=== PATIENT | male | born 2000 | race Caucasian/White ===

== ENCOUNTER 2024-09-28 14:44 | Emergency (ER) | payer OTHER, SELFPAY ==
[2024-09-28 15:02] VITALS: BP 116/72
--- NOTE | 2024-09-28 16:29 | ED.GENMED ---
History of Present Illness
General
Chief Complaint: Musculo-Skeletal Complaint
Source: family
Exam Limitations: non verbal-adult
Time Seen by Provider: 09/28/24 16:21
History of Present Illness
History of Present Illness:
See MDM
Past History
Past History
ED Past Medical History: Other (Cerebral palsy nonverbal, )
ED Past Surgical History: Other (Cataract)
Social History
Tobacco: Non-smoker
Alcohol: None
Personal: Single
Living: with family
Phy Exam
Physical Exam
Physical Exam:
See MDM
Course
Orders/Labs/Results
Orders:
Orders
09/28/24 15:05
Knee, Right 4 or More Views [CR Knee- Right 4 Or More View*] Urgent
Comment:
Reason For Exam: swelling
09/28/24 16:41
Fluid Culture with Gram Stain Urgent
SUNIL Source: Joint Fluid
Specimen Description:
Vital Signs
Initial and Last Documented VS:
Initial Vital Signs
Pulse Resp BP Pulse Ox
100 22 116/72 100
09/28/24 15:02 09/28/24 15:02 09/28/24 15:02 09/28/24 15:02
Last Documented Vital Signs
Pulse Resp BP Pulse Ox
100 22 116/72 100
09/28/24 15:02 09/28/24 15:02 09/28/24 15:02 09/28/24 15:02
Procedures
Incision/Drainage/Joint Aspiration
Right Anterior Knee:
Preparation: cleaned with Betadine
Type of procedure: aspiration
Nature of site: other (Prepatellar effusion)
Description of abscess: greater than 3cm
Loculations broken up: No
How much fluid was obtained?: number in mls (20 mL)
Fluid description: blood tinged
Treatment: bandaid applied
MDM/Problems Addressed
Differential Diagnosis Includes:
HPI and MDM Narrative:
23-year-old nonverbal male presenting with father for evaluation of right knee swelling. He went to the PCP today and the PCP indicated that this likely needs to be drained. They called the orthopedist but there is no available appointment for
over a month. Patient does get around on his knees due to his cerebral palsy. On exam, patient has what appears to be a prepatellar bursitis. There is no skin changes or any evidence of intra-articular effusion. Father gave verbal consent for
drainage
Physical exam
General: Well appearing and non-toxic
HEENT: protecting airway
Neck: appears supple
CV: No evidence of cyanosis
Resp: No accessory muscle use
Abd: Non-distended
Extremities: Right knee prepatellar bursitis. No skin changes
Neuro: alert
Psych: Normal affect
Skin: Intact
Problems Addressed including Acute and Chronic Conditions affecting care:
1. Prepatellar bursitis
Acuity: acute
Prognosis: stable
Details: Appears to be related to overuse. Will drain
Updates
Patient tolerated aspiration well. 20 cc of blood-tinged fluid was removed. Will send for Gram stain and culture
Differential Diagnosis (but not limited to): Prepatellar bursitis, patellar fracture
Testing considered: Fluid analysis
Drug therapy (if applicable): OTC meds, please see d/c instruction regarding Rx drugs
Amount and/or Complexity of Data Reviewed
Clinical info obtained from: Father
External data reviewed: N/A
Labs I independently reviewed (but not limited to): N/A
Radiology: N/A
Pulse Ox: not hypoxic
EKG independently reviewed: N/A
Inbound Sales Representative: N/A
Critical Care: N/A
Risk of Complication:
Social Determinants of health: Good social support
Discussed with other providers: N/A
Escalation of Care includes Admit/Obs: After being observed in the Emergency Department, pt stable for discharge.
Occasional wrong word or 'sound a like' substitutions may have occurred due to the inherent limitations of voice recognition software. Read the chart carefully and recognize, using context, where substitutions have occurred.
*Critical Care Note
Total Time (30-74mins, 75-104mins- exclusive of procedures): Not Applicable
ED Attending Note
-
Portions of this chart may have been created with voice recognition software.� Occasional wrong word or��sound alike� substitutions may have occurred due to the inherent limitations of voice recognition software.
Discharge Plan
Departure
Patient Disposition: Home (Routine Discharge)
Date of Disposition: 09/28/24
Time of Disposition: 16:48
Patient with high blood pressure during this ER visit?: No
Discharge Problem:
Bursitis, prepatellar, right
Instructions: Bursitis - ED discharge instructions
Prescriptions:
No Action
Mucinex :
5 ml PO PRN PRN (Reason: mucous)
Season Allergy Medication
simethicone [Infants' Mylicon] 40 mg/0.6 mL drops,suspension
80 mg PO DAILY Qty: 30 0RF
Activity Restrictions/Additional Instructions:
Please return for any worsening symptoms.
You may return at any time if you have further concerns.
Please follow up with your doctor at the first available appointment, preferably this week.
Thank you for choosing [facility].
Interventions
Interventions:
*Risk Screen - Suicide Last Done: 09/28/24 15:02
*General Assessment Last Done: 09/28/24 15:02
*Neglect/Abuse Screening Last Done: 09/28/24 15:02
*ED- Fall Risk Assessment Last Done: 09/28/24 16:13
*ED COVID-19 Vaccine History Last Done: 06/07/25 16:13
Discharge Date and Time
Print Language: LAO
== END 2024-09-28 17:00 | disposition home or self-care (01) ==
LOC: EMR 14:44
PROVIDERS: EMERGENCY PHYSICIAN Student in an Organized Health Care Education/Training Program; FAMILY PHYSICIAN Family Medicine
DX: M70.41 Prepatellar bursitis, right knee (principal); M25.461 Effusion, right knee; G80.8 Other cerebral palsy; Z91.048 Other nonmedicinal substance allergy status
CPT/HCPCS: 99283; 10060; 73564; 87015; 87070; 87205